=== PATIENT | female | born 1985 | race Caucasian/White ===

== ENCOUNTER 2016-08-07 17:47 | Observation (INO) ==
[2016-08-07 18:35] LABS: Bilirubin,Urine Negative (Negative); Blood,Urine Negative (Negative); Clarity,Urine Clear (Clear); Color,Urine Yellow (Yellow); Glucose,Urine (UA) Normal (Normal); Ketones,Urine Negative (Negative); Leukocyte Esterase,Urine Small (Negative); Nitrite,Urine Negative (Negative); PH,Urine 5.5 pH Units (5.0-8.0); Protein,Urine Negative (Neg-Trace); Specific Gravity,Urine 1.025 (1.010-1.025); Urobilinogen,Urine Normal (Normal)
[2016-08-07 18:37] LABS: Bacteria,Urine Moderate per hpf (None-Few); Hyaline Casts,Urine None Seen per lpf (None-Few); Squamous Epithelial Cell,Urine Many per lpf (None-Few)
--- NOTE | 2016-08-07 18:50 | OB/GYN Progress Note ---
Date of Encounter: 08/07/16 Time of Encounter: 18:40 - Assessment and Plan (1) and not yet delivered in second trimester Current Visit: Yes Status: Acute (2) 25 weeks gestation of Current Visit: Yes Status: Acute (3) Pain of round ligament affecting , antepartum Current Visit: Yes Status: Acute Labor precautions given has been instructed to get off her feet minimize activity can use Tylenol and heating pad (4) Decreased movement affecting management of in second trimester Current Visit: Yes Status: Acute kick counts given Subjective - Subjective Interval history: Patient is a 31-year-old 4 para 2 at 25-2/7 weeks who presented to labor and delivery complaining of decreased movement and sharp stabbing pain when she moves in certain way. Patient states no longer having the pain is just lying flat is just when she goes from sitting to standing she has a sharp pain in the lower abdomen that goes across the midline. Patient states she is unable to be removed in 1-2 times in the last 4 days. She does have an anterior placenta. Did inform it is not uncommon not to have a lot of movement at this gestational age especially with the anterior placenta. Patient was concerned she came in just to be monitored. She is denying any dysuria urgency frequency no vaginal discharge itching or burning. Since being placed on the monitor she has been having good movement. Antepartum ROS: other (Decreased movement with sharp stabbing pain with movement) Objective - Vital Signs Vital Signs: Intake and Output 08/07/16 08/07/16 08/07/16 07:59 15:59 23:59 Other: Weight 132.7 kg Patient Weight 08/07/16 23:59 Weight 132.7 kg - Exam FHR: category 1 FHR comments: heart tones 140s reassuring no contractions seen Abdomen: Present: normal appearance, gravid Uterus: Present: normal, other (mild tenderness of the inguinal region suggestive of round ligament pain) - Labs Labs: Abnormal lab results Ur Leukocyte Esterase Small (Negative) H 08/07/16 18:22
[2016-08-07 19:14] LABS: Calcium Phosphate Crystals,Ur Present
== END 2016-08-07 19:09 | disposition home or self-care (01) ==
LOC: 1NENULAB
PROVIDERS: ADMIT Obstetrics & Gynecology; ATTEND Obstetrics & Gynecology

== ENCOUNTER 2016-10-12 22:12 | Observation (INO) ==
--- NOTE | 2016-10-12 23:19 | OB/GYN Progress Note ---
Date of Encounter: 10/12/16 Time of Encounter: 23:19 - Assessment and Plan (1) 35 weeks gestation of Status: Acute (2) NST (non-stress test) reactive Status: Acute Baseline 125 (3) Decreased movement affecting management of Status: Acute Patient reports kick counts 3 out of 10 for over 3 hours prior to arrival. However patient had reactive NST baseline of 125, increased activity reassuring benign physical exam. No abdominal pain, contractions, or fluid leakage. Pt does report recent vaginal infection with gardnerella treated with flagyl and last dose was today. Discharge is still present. May take some time to clear. Discussed with pt. No urinary sx. Vitals stable. Reassuring reactive NST with baseline of 125. During the course of her stay pt continued to experience movements. Discharge home. Return precautions given, patient and expressed understanding. Subjective - Subjective Principal diagnosis: decreased movement Interval history: Patient is a at 34 weeks and 4 days with a past medical history of Anxiety, Polycystic ovarian syndrome, MTHFR heterozygous mutation, gastroesophageal reflux disease (GERD), Gestational Diabetes, obesity who presents with decreased movement. Patient reports that during her daily kick counts around 9 PM this evening there were only 3 out of 10. Furthermore, patient reports that she had not really felt kicks throughout the day but that baby is generally more active in the evening after a large meal around dinnertime. Patient tried changing positions, increasing fluid intake without increase in kick counts. Patient called in for guidance and she was encouraged to be evaluated. On presentation to labor and delivery patient had reactive NST with a baseline of 125. Patient noted that she was feeling the baby much more after arrival. In addition, patient reports vaginal discharge that is yellowish green with a slight odor that has been persistent since onset 2 weeks ago. Pt reports that she is wearing a pad due to volume of discharge. US 10/10/16 Demonstrated nuchal cord. Pt has had significant anxiety and worry over this. Pt instructed to take movement counts daily. Recent infections: Gardnerella detected on 10/05/16 treated with Flagyl last dose was today. Patient denies: Abdominal pain, fluid leakage, dysuria, pyuria, hematuria, flank pain. Patient has had regular visits and is seen by Jesse Manuel DO. OB History: Total pregnancies 4. Total living children 2. Miscarriage(s) 1. # 1: 04/23/2010, vaginal delivery, EGA 38 weeks, female, 6-13#. # 2: 11/18/2013 Vaginal delivery Full term 10lbs 2oz [place] delivered. [place] [place] [employer] History: Sexual activity age of first intercourse 19, number of sex partners in life 1, currently sexually active. Last pap smear date 02/04/14. Last mammogram date n/a. Denies H/O Abnormal pap smear none. Denies H/O Sexually Transmitted Diseases (STDs) none. control none. Menarche:Age of onset of maternal menarche: 14. Menstruation: Last menstrual period 02/12/2016 Bone Density Testing No. Comment SBE-occ Colonoscopy-no . History of Ovarian Cyst Yes. Antepartum ROS: other (vaginal discharge), no loss of fluid, no vaginal bleeding , no movement normal, no contractions Objective - Vital Signs Vital Signs: Intake and Output 10/12/16 10/12/16 10/12/16 07:59 15:59 23:59 Other: Weight 127.7 kg Patient Weight 10/12/16 23:59 Weight 127.7 kg - Exam FHR: auscultation normal FHR comments: 125 baseline Auscultation: bilateral: normal Abdomen: Present: normal appearance, soft, gravid Uterus: Present: normal, firm
--- NOTE | 2016-10-12 23:36 | Discharge Summary ---
Date of Encounter: 10/12/16 Time of Encounter: 23:34 - Discharge Diagnosis (1) 35 weeks gestation of Priority: Primary Status: Acute (2) Decreased movement affecting management of in second trimester Priority: Primary Status: Acute Comments: P called and reported decrease in movement during kick counts 10/06. Pt in for evaluation. Reactive NST with baseline of 125. Pt states is feeling baby move more now that she is here. discussed counts and need to continue. Discharged in stable condition, discussed when to call provider and return to triage. (3) NST (non-stress test) reactive Priority: Secondary Status: Acute Comments: Baseline 125 - Discharge Medications Home Medications: Aspirin [Lo-Dose Aspirin EC] 1 tab PO DAILY 08/07/16 [History] Vit Calc,Iron,Folic [ Vitamins] 1 tab PO DAILY 08/07/16 [ History] Ranitidine HCl [Zantac 75] 75 mg PO DAILY 10/12/16 [History] Allergies/Adverse Reactions: Allergies No Known Allergies Allergy (Verified 08/07/16 18:16) Date of admission: 10/12/16 22:12 Discharging clinician: Michelle Bello Anticipated date of discharge: 10/12/16 - Patient Status Disposition: Home, Self-Care Condition: Good Functional capacity at discharge: independent ambulation Overall status at discharge: patient is back to baseline - Discharge Instructions Follow Up With: Bakari Manuel DO [Partnered Physician] - - Diet and Activity Activity: resume usual activities as tolerated Diet: regular diet 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
== END 2016-10-12 23:50 | disposition home or self-care (01) ==
LOC: 1NENULAB
PROVIDERS: ADMIT Obstetrics & Gynecology; ATTEND Obstetrics & Gynecology

== ENCOUNTER 2016-10-20 15:28 | Observation (INO) ==
--- NOTE | 2016-10-20 15:36 | OB/GYN Progress Note ---
Date of Encounter: 10/20/16 Time of Encounter: 15:31 - Assessment and Plan (1) 35 weeks gestation of Current Visit: No Status: Acute FHR monitoring/tocometer (2) Decreased movement affecting management of Current Visit: No Status: Acute FHR and tocometer; hydration Subjective - Subjective Principal diagnosis: decreased movement Interval history: 31 year , 35 5/7 weeks, follows with Dr. Manuel has been advised to count kicks due to possible nuchal cord found on US at 33 weeks. Patient states that yesterday she had decreased movement and called the OB office and was advised to drink sweat tea which resolved the problem. She states she may have also experienced a small loss of fluid because her panty liner was wet but is not sure if it was urine because she is most recently recovering from a UTI. Little states that since 1100 today, she has not felt movement but it experineicng RLQ sharp shooting pain. She denies fever, nausea, vomitting, or UTI symptoms. Denies any loss of fluid today. JAYSON: 11/18/16 Antepartum ROS: other (decreased movement, abdominal pain, possible loss of fluid) Objective - Exam FHR comments: 140-150s Auscultation: bilateral: normal Abdomen: Present: normal appearance, soft, gravid Uterus: Present: normal, firm
[2016-10-20 17:22] LABS: Basophils % 0.2 %; Eosinophils # 0.1 K/mcL (0.0-0.6); Eosinophils % 1.3 %; Hematocrit 39.7 % (35.3-44.9); Hemoglobin 13.1 g/dL (11.5-15.4); Immature Granulocytes % 0.3 % (0-4); Immature Platelets 12.4 % (1.1-6.1); Lymphocytes # 1.9 K/mcL (0.6-4.6); Lymphocytes % 21.6 %; Mean Corpuscular Volume 81.9 fL (83.0-100.0); Mean Platelet Volume 11.9 fL (9.4-12.4); Monocytes # 0.6 K/mcL (0.0-1.3); Monocytes % 6.7 %; Neutrophils # 6.2 K/mcL (1.6-8.9); Platelet Count 193 K/mcL (140-400); Red Blood Count 4.85 M/mcL (3.82-4.97); Red Cell Distribution Width 14.7 % (11.5-14.5); Segmented Neutrophils % 69.9 %
[2016-10-20 17:31] LABS: Protein/Creatinine Ratio,Urine 0.16 mg/mg (0-0.20)
[2016-10-20 17:46] LABS: Alanine Aminotransferase 34 Units/L (0-55); Aspartate Amino Transferase 18 Units/L (5-34); BUN/Creatinine Ratio 13 (6-26); Blood Urea Nitrogen 7 mg/dL (7-20); Uric Acid 3.1 mg/dL (2.6-6.0); eGFR For African Americans > 60 (> 60); eGFR For Non-African Americans > 60 (> 60)
[2016-10-20 17:59] LABS: Lactate Dehydrogenase 179 Units/L (159-327)
--- NOTE | 2016-10-20 18:09 | Discharge Summary ---
Date of Encounter: 10/20/16 Time of Encounter: 18:12 - Discharge Diagnosis (1) 35 weeks gestation of Priority: Primary Status: Acute (2) NST (non-stress test) reactive Priority: Secondary Status: Acute (3) Decreased movement affecting management of Priority: Primary Status: Acute - Discharge Medications Home Medications: Aspirin [Lo-Dose Aspirin EC] 1 tab PO DAILY 08/07/16 [History] Vit Calc,Iron,Folic [ Vitamins] 1 tab PO DAILY 08/07/16 [ History] Ranitidine HCl [Zantac 75] 75 mg PO DAILY 10/12/16 [History] Allergies/Adverse Reactions: Allergies No Known Allergies Allergy (Verified 08/07/16 18:16) Data Procedures and tests throughout hospitalization: Laboratory Tests 10/20/16 10/20/16 10/20/16 17:12 17:12 17:12 WBC 8.9 RBC 4.85 Hgb 13.1 Hct 39.7 MCV 81.9 L MCH 27.0 L MCHC 33.0 RDW 14.7 H Plt Count 193 MPV 11.9 Immature Gran % 0.3 Seg Neutrophils % 69.9 Lymphocytes % 21.6 Monocytes % 6.7 Eosinophils % 1.3 Basophils % 0.2 Neutrophils # 6.2 Lymphocytes # 1.9 Monocytes # 0.6 Eosinophils # 0.1 Basophils # 0.0 Immature Plt Fraction 12.4 H BUN 7 Creatinine 0.56 L Est GFR ( Amer) > 60 Est GFR (Non-Af Amer) > 60 BUN/Creatinine Ratio 13 Uric Acid 3.1 AST 18 ALT 34 Lactate Dehydrogenase 179 Urine Creatinine 115 Protein/Creatinin Ratio 0.16 Urine Total Protein 18 H Labs on day of discharge: Labs from last 24 hours 10/20/16 10/20/16 10/20/16 17:12 17:12 17:12 WBC 8.9 RBC 4.85 Hgb 13.1 Hct 39.7 MCV 81.9 L MCH 27.0 L MCHC 33.0 RDW 14.7 H Plt Count 193 MPV 11.9 Immature Gran % 0.3 Seg Neutrophils % 69.9 Lymphocytes % 21.6 Monocytes % 6.7 Eosinophils % 1.3 Basophils % 0.2 Neutrophils # 6.2 Lymphocytes # 1.9 Monocytes # 0.6 Eosinophils # 0.1 Basophils # 0.0 Immature Plt Fraction 12.4 H BUN 7 Creatinine 0.56 L Est GFR ( Amer) > 60 Est GFR (Non-Af Amer) > 60 BUN/Creatinine Ratio 13 Uric Acid 3.1 AST 18 ALT 34 Lactate Dehydrogenase 179 Urine Creatinine 115 Protein/Creatinin Ratio 0.16 Urine Total Protein 18 H Date of admission: 10/20/16 15:28 Primary care physician: Roslyn Soriano Discharging clinician: Magan Ac Anticipated date of discharge: 10/20/16 - Patient Status Disposition: Home, Self-Care Condition: Good Functional capacity at discharge: independent ambulation Overall status at discharge: patient is back to baseline - Discharge Instructions Follow Up With: Roslyn Guzman MD [Primary Care Provider] - 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 Attestation: Total time spent providing and/or coordinating discharge services: Exam - Constitutional General appearance IM: A&O X 3, pleasant, no acute distress, obese - Respiratory Respiratory exam: Present: CTAB - Cardiovascular Cardiovascular exam IM: Present: +S1, +S2 - GI/Abdominal GI/Abdominal exam IM: normal bowel sounds - Extremities Exam Extremities exam IM: Present: full ROM, normal capillary refill, normal inspection, pedal edema (Mild nonpitting bilateral lower extremities), radial pulses palpable and symetrical - Neurological Exam Neurological exam: CN II-XII intact, reflexes normal
== END 2016-10-20 18:16 | disposition home or self-care (01) ==
LOC: 1NENULAB
PROVIDERS: ADMIT Obstetrics & Gynecology; ATTEND Obstetrics & Gynecology

== ENCOUNTER 2016-10-25 18:37 | Observation (INO) ==
[2016-10-25 20:21] LABS: eGFR For African Americans > 60 (> 60); eGFR For Non-African Americans > 60 (> 60)
[2016-10-25 20:32] LABS: Protein/Creatinine Ratio,Urine 0.1 mg/mg (0-0.20)
[2016-10-25 21:06] LABS: Basophils % 0.3 %; Eosinophils # 0.1 K/mcL (0.0-0.6); Eosinophils % 1.2 %; Hematocrit 41.6 % (35.3-44.9); Hemoglobin 13.4 g/dL (11.5-15.4); Immature Granulocytes % 0.4 % (0-4); Lymphocytes # 1.6 K/mcL (0.6-4.6); Lymphocytes % 20.7 %; Mean Corpuscular HGB Conc 32.2 g/dL (31.6-35.5); Mean Corpuscular Hemoglobin 26.5 pg (28.0-33.3); Mean Corpuscular Volume 82.4 fL (83.0-100.0); Mean Platelet Volume 11.6 fL (9.4-12.4); Monocytes # 0.6 K/mcL (0.0-1.3); Monocytes % 7.5 %; Neutrophils # 5.4 K/mcL (1.6-8.9); Platelet Count 175 K/mcL (140-400); Red Blood Count 5.05 M/mcL (3.82-4.97); Red Cell Distribution Width 14.9 % (11.5-14.5); Segmented Neutrophils % 69.9 %
[2016-10-25 21:16] LABS: Alanine Aminotransferase 27 Units/L (0-55); Aspartate Amino Transferase 19 Units/L (5-34); Blood Urea Nitrogen 10 mg/dL (7-20); Lactate Dehydrogenase 216 Units/L (159-327); Uric Acid 4.4 mg/dL (2.6-6.0)
--- NOTE | 2016-10-25 21:38 | Discharge Summary ---
Date of Encounter: 10/25/16 Time of Encounter: 21:00 - Discharge Diagnosis (1) 36 weeks gestation of Priority: Primary Status: Acute Comments: Patient 36 weeks gestation presents to triage with headache for last 2 days and elevated blood pressures sent to triage for evaluation from office. Patient had taken blood pressure at home had elevated blood pressures dizziness and occasional chest pressure. On evaluation patient denied those symptoms Patient reports good movement and denies leaking of fluid or vaginal bleeding (2) Elevated blood pressure affecting in third trimester, antepartum Priority: Primary Status: Acute Comments: Elevated blood pressures resolved while triage last blood pressure 143/78. PIH labs drawn all labs negative. +2 DTRs patient denies all other PIH symptoms Plan to discharge patient to home discussed PIH symptoms and when to return to triage also discussed labor warning signs and symptoms and when to call provider (3) Headache in , antepartum Priority: Secondary Status: Acute Comments: Patient states headache is improved since presenting to triage. For patient we are separate pain management patient declined state she has had similar medication the past (Excedrin) and she does not like the way it makes her feel. Patient states she does not drink a lot of caffeine and has a low tolerance. Advised patient to she could take Tylenol and Benadryl if needed for sleep. Patient also encouraged to increase hydration and fluid due to concentrated urine on evaluation Qualifiers: Trimester: third trimester Qualified Code(s): O26.893 - Other specified related conditions, third trimester; R51 - Headache (4) NST (non-stress test) reactive Priority: Secondary Status: Acute Comments: Baseline 120s - Discharge Medications Home Medications: Aspirin [Lo-Dose Aspirin EC] 1 tab PO DAILY 08/07/16 [History] Vit Calc,Iron,Folic [ Vitamins] 1 tab PO DAILY 08/07/16 [ History] Ranitidine HCl [Zantac 75] 75 mg PO DAILY 10/12/16 [History] Allergies/Adverse Reactions: Allergies No Known Allergies Allergy (Verified 08/07/16 18:16) Data Procedures and tests throughout hospitalization: Laboratory Tests 10/25/16 10/25/16 10/25/16 20:02 20:02 20:02 WBC 7.8 RBC 5.05 H Hgb 13.4 Hct 41.6 MCV 82.4 L MCH 26.5 L MCHC 32.2 RDW 14.9 H Plt Count 175 MPV 11.6 Immature Gran % 0.4 Seg Neutrophils % 69.9 Lymphocytes % 20.7 Monocytes % 7.5 Eosinophils % 1.2 Basophils % 0.3 Neutrophils # 5.4 Lymphocytes # 1.6 Monocytes # 0.6 Eosinophils # 0.1 Basophils # 0.0 BUN 10 Creatinine 0.59 Est GFR ( Amer) > 60 Est GFR (Non-Af Amer) > 60 Uric Acid 4.4 AST 19 ALT 27 Lactate Dehydrogenase 216 Urine Creatinine Protein/Creatinin Ratio Urine Total Protein 10/25/16 20:10 WBC RBC Hgb Hct MCV MCH MCHC RDW Plt Count MPV Immature Gran % Seg Neutrophils % Lymphocytes % Monocytes % Eosinophils % Basophils % Neutrophils # Lymphocytes # Monocytes # Eosinophils # Basophils # BUN Creatinine Est GFR ( Amer) Est GFR (Non-Af Amer) Uric Acid AST ALT Lactate Dehydrogenase Urine Creatinine 205 Protein/Creatinin Ratio 0.10 Urine Total Protein 21 H Labs on day of discharge: Labs from last 24 hours 10/25/16 10/25/16 10/25/16 20:10 20:02 20:02 WBC RBC Hgb Hct MCV MCH MCHC RDW Plt Count MPV Immature Gran % Seg Neutrophils % Lymphocytes % Monocytes % Eosinophils % Basophils % Neutrophils # Lymphocytes # Monocytes # Eosinophils # Basophils # BUN 10 Creatinine 0.59 Est GFR ( Amer) > 60 Est GFR (Non-Af Amer) > 60 Uric Acid 4.4 AST 19 ALT 27 Lactate Dehydrogenase 216 Urine Creatinine 205 Protein/Creatinin Ratio 0.10 Urine Total Protein 21 H 10/25/16 20:02 WBC 7.8 RBC 5.05 H Hgb 13.4 Hct 41.6 MCV 82.4 L MCH 26.5 L MCHC 32.2 RDW 14.9 H Plt Count 175 MPV 11.6 Immature Gran % 0.4 Seg Neutrophils % 69.9 Lymphocytes % 20.7 Monocytes % 7.5 Eosinophils % 1.2 Basophils % 0.3 Neutrophils # 5.4 Lymphocytes # 1.6 Monocytes # 0.6 Eosinophils # 0.1 Basophils # 0.0 BUN Creatinine Est GFR ( Amer) Est GFR (Non-Af Amer) Uric Acid AST ALT Lactate Dehydrogenase Urine Creatinine Protein/Creatinin Ratio Urine Total Protein Date of admission: 10/25/16 18:37 Discharging clinician: Michelle Bello Anticipated date of discharge: 10/25/16 - Patient Status Disposition: Home, Self-Care Condition: Good - Discharge Instructions 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 Absent: calf tenderness, joint swelling - Neurological Exam Neurological exam: CN II-XII intact, oriented X3, reflexes normal, no focal deficits, strengths equal and symetr throughout - VTE Reasons for not Prescribing Prophylaxis: Treatment not Indicated - Low risk for VTE
== END 2016-10-25 21:45 | disposition home or self-care (01) ==
LOC: 1NENULAB
PROVIDERS: ADMIT Obstetrics & Gynecology; ATTEND Obstetrics & Gynecology

== ENCOUNTER 2016-11-01 12:31 | Observation (INO) ==
--- NOTE | 2016-11-01 12:59 | OB/GYN History & Physical ---
Date of Encounter: 11/01/16 Time of Encounter: 14:23 Assessment and Plan (1) Decreased movement during in third trimester, antepartum Current visit: Yes Status: Acute - vaginal delivery x2 37w 0d Patient reported decrease in movement per failed kick count x 2 today. She does feel movement now. External TOCO External FHR NST Gave orange push pop/cold fluids. NST reactive. Qualifiers: Fetus number: single or unspecified fetus Qualified Code(s): O36.8130 - Decreased movements, third trimester, not applicable or unspecified (2) with 37 or more completed weeks gestation Current visit: Yes Status: Acute as above (3) and not yet delivered in third trimester Current visit: Yes Status: Acute as above. (4) Chronic hypertension Current visit: Yes Status: Acute Continue current outpatient management. Pt denies s/sx preeclampsia today. BP normal in triage. (5) Obesity Current visit: Yes Status: Acute Continue current outpatient management. Qualifiers: Obesity type: due to excess calories Obesity severity: non-morbid Qualified Code(s): E66.09 - Other obesity due to excess calories (6) NST (non-stress test) reactive Current visit: No Status: Acute FHT 120 BPM History of Present Illness Chief complaint: decreased movement HPI: Ms. Delgado is a 31 year old female presents from home with concerns regarding decreased movement. Patient is concerned regarding previously noted nuchal cord. On patient's last visit to L&D, she was instructed to perform kick counts 3x daily. She has done two today and did not have any movement (6 kicks/1hr...she did drink something cold and lay still while counting as instructed). She is experiencing vaginal pressure and BL low back pressure. No vaginal discharge; no blood or fluid discharge. She notes mild tingling in her BL LE but is able to ambulate without difficulty. She is not sure if she is having any contractions stating, "I don't know what a contraction feels like. I had back labor with my last 2 deliveries." 37w 0d OB: Dr. Manuel complications: Possible nuchal cord found at 33w. Obesity, Chronic HTN. Hx GDM. Hx macrosomia - vaginally delivered. Patient's sister had MTHFR mutation. Blood type: A+, Ab (-) GBS (-) HbSAg (-) @ 05/13/16 Rubella (+) VZV (+) C. Trach (-) N. Gonorr (-) HIV (-) CF (-) While in triage she did start to feel some movement. She continues to report intermittent lower back discomfort and pelvic pressure. No other complaints. Past Med Surg Social Fam HX - Past Medical History Source: patient Medical history: no medical history Psychiatric history: no psych history - Past Surgical History Surgical History: non-contributory - Social History Smoking Status: Never smoker Smokeless Tobacco Status: No Alcohol use: none Drug use: none - Family History Mother Adopted: No Living Status: Still Living Hx Family Cardiac Disorders: Yes (HYPERTENSION) Obstetrical History - Pregnancies : 4 Para: 2 Term: 2 : 0 Ab's: 0 Livin Medications and Allergies Aspirin [Lo-Dose Aspirin EC] 1 tab PO DAILY 08/07/16 [History] Vit Calc,Iron,Folic [ Vitamins] 1 tab PO DAILY 08/07/16 [ History] Ranitidine HCl [Zantac 75] 75 mg PO DAILY 10/12/16 [History] Allergies No Known Allergies Allergy (Verified 08/07/16 18:16) Review of System OB All systems PM: reviewed and no additional remarkable complaints except as stated - Constitutional Constitutional ROS IM: no fatigue, no fever(s), no headache(s) - Nose, mouth, and throat Nose, mouth and throat: no dizziness, no headache(s) - Cardiovascular Cardiovascular: pedal edema, no chest pain, no lightheadedness - Respiratory Respiratory: no cough, no dyspnea, no hemoptysis, no wheezing, no chest congestion - Gastrointestinal Gastrointestinal: no abdominal pain, no change in stool character, no constipation, no diarrhea, no dyspepsia, no heartburn, no nausea, no vomiting - Genitourinary Genitourinary: no flank pain, no vaginal discharge - Neurological Nerological: numbness, no headache(s), no lack of coordination, no paresthesias , no vertigo Exam - Constitutional Constitutional: well developed, well nourished, no acute distress, obese - HEENT HEENT: Mucus Membranes Moist - Neck Neck exam: normal inspection - Lungs Respiratory exam: CTAB - Cardiovascular Cardiovascular exam: RRR, +S1, +S2 - Abdomen Abdomen: Present: bowel sounds normal, gravid, non tender. Absent: guarding noted - Extremities Extremities exam: normal capillary refill, normal inspection, pedal edema (1+ equal bilaterally), radial pulses palpable and symetrical - Vagina Vagina: Present: normal moisture - Cervix Dilation: 3 Effacement: 50 (bolottable) Station: -3 - Anus/Rectum Anus/Rectum: Present: normal perianal skin Results All other labs normal.
--- NOTE | 2016-11-01 14:35 | OB/GYN Progress Note ---
Date of Encounter: 11/01/16 Time of Encounter: 14:33 - Assessment and Plan (1) Decreased movement during in third trimester, antepartum Current Visit: Yes Status: Acute - vaginal delivery x2 37w 0d Patient reported decrease in movement per failed kick count x 2 today. She does feel movement now. External TOCO External FHR NST Gave orange push pop/cold fluids. NST reactive. Qualifiers: Fetus number: single or unspecified fetus Qualified Code(s): O36.8130 - Decreased movements, third trimester, not applicable or unspecified (2) with 37 or more completed weeks gestation Current Visit: Yes Status: Acute as above (3) and not yet delivered in third trimester Current Visit: Yes Status: Acute as above. (4) Chronic hypertension Current Visit: Yes Status: Acute Continue current outpatient management. Pt denies s/sx preeclampsia today. BP normal in triage. (5) Obesity Current Visit: Yes Status: Acute Continue current outpatient management. Qualifiers: Obesity type: due to excess calories Obesity severity: non-morbid Qualified Code(s): E66.09 - Other obesity due to excess calories (6) NST (non-stress test) reactive Current Visit: No Status: Acute FHT 120 BPM Subjective - Subjective Interval history: Pt presenting at 37 weeks with c/o decreased movement, lower back pain, and pelvic pressure. No bleeding or LOF. She has chronic HTN but denies s/sx preeclampsia. Antepartum ROS: no loss of fluid, no vaginal bleeding, no contractions Objective - Vital Signs Vital Signs: Intake and Output 10/31/16 11/01/16 11/01/16 23:59 07:59 15:59 Other: Weight 126.099 kg Patient Weight 11/01/16 23:59 Weight 126.099 kg - Exam FHR: category 1 FHR comments: NST reactive Auscultation: bilateral: normal Abdomen: Present: soft, gravid. Absent: tenderness Uterus: Absent: tenderness Cervical dilation: 3 Cervix effacement: 50 station: bolottable
== END 2016-11-01 14:41 | disposition home or self-care (01) ==
LOC: 1NENULAB
PROVIDERS: ADMIT Obstetrics & Gynecology; ATTEND Obstetrics & Gynecology

== ENCOUNTER 2016-11-16 04:45 | Inpatient (IN) ==
[2016-11-16] MEDS ORDERED: Naloxone 0.4 MG/ML INJ IVP PRN (05:22)
[2016-11-16] MEDS ORDERED: Famotidine 20 MG/2 ML VIAL IVP PRN (05:22)
[2016-11-16] MEDS ORDERED: Metoclopramide 10 MG/2 ML VIAL IVP PRN (05:22)
[2016-11-16] MEDS ORDERED: *HR* Nalbuphine 20 MG/ML AMPUL IVP PRN (05:28)
[2016-11-16] MEDS ORDERED: Ringers Solution, Lactated 1,000 ML IVC SCH (05:30)
[2016-11-16] MEDS ORDERED: Lidocaine -MPF 2% 5 ML VIAL INFILT ONE (05:35)
--- NOTE | 2016-11-16 05:46 | OB/GYN History & Physical ---
Date of Encounter: 11/16/16 Time of Encounter: 05:40 Assessment and Plan (1) 39 weeks gestation of Current visit: Yes Status: Acute 39 weeks 5 days admit to labor and delivery for induction of labor BMI is 43 continue on FHM and toco elevated BP 150/91, PIH orders initiated pain medications or epidural upon request anticipate (2) induced hypertension, antepartum Current visit: Yes Status: Acute no signs/symptoms initial BP elevated 150/90 PIH orders initiated (3) Obesity Current visit: Yes Status: Acute BMI is 43 Qualifiers: Obesity type: unspecified obesity type Obesity severity: unspecified obesity severity Qualified Code(s): E66.9 - Obesity, unspecified History of Present Illness Chief complaint: induction of labor HPI: Ms. Delgado is a 31 year old female 39 weeks 5 days presents for induction of labor. Her estimated due date is 11/18/2016. Her OB is Dr. Manuel, scheduled induction today at 0500. Last cervix check 4cm/50% on 11/14/2016Her blood pressure is elevated here 150/90. BP has been monitored throughout , normotensive. No complaints at this time. Denies any headache, fever , abdominal tenderness. Endorses good movement. History of gestational diabetes on prior and chronic hypertension. History of 2 spontaneous vaginal deliveries without complications. GBS negative. HBV nonreactive, Rubella immune, other serologies reviewed and otherwise negative. Her blood type is A positive. Last meal or oral intake 1830 last night. History of wisdom teeth extraction, D&C and bilateral urethral implants. No complications with surgeries or anesthesia in the past. No known drug allergies. She takes vitamins, baby aspirin for MTHFR (no history of blood clots), and Xanax. Past Med Surg Social Fam HX - Past Medical History Medical history: no medical history Psychiatric history: no psych history - Past Surgical History Surgical History: non-contributory - Social History Smoking Status: Never smoker Smokeless Tobacco Status: No Alcohol use: none Drug use: none - Family History Mother Adopted: No Age: 63 Living Status: Still Living Hx Family Cardiac Disorders: Yes (htn) Hx Family Respiratory Disorders: No Hx Family Cancer: No Hx Family GI Disorders: No Hx Family Genitourinary Disorders: No Hx Family Endocrine Disorder: No Hx Family Musculoskeletal Disorders: No Hx Family Neuromuscular Disorders: No Hx Family Neurologic Disorders: No Hx Family HEENT Disorders: No Hx Family Autoimmune Disorders: No Hx Family Reproductive Disorders: No Hx Family Psychosocial Disorders: No Hx Family Medical Disorders: No Obstetrical History - Pregnancies : 4 Para: 2 Term: 2 : 0 Ab's: 1 Livin Medications and Allergies Aspirin [Lo-Dose Aspirin EC] 1 tab PO DAILY 08/07/16 [History] Vit Calc,Iron,Folic [ Vitamins] 1 tab PO DAILY 08/07/16 [ History] Ranitidine HCl [Zantac 75] 75 mg PO DAILY 10/12/16 [History] Allergies No Known Allergies Allergy (Verified 08/07/16 18:16) Review of System OB All systems PM: reviewed and no additional remarkable complaints except as stated Exam - Vital Signs Vital signs: Initial Vital Signs Pulse Resp BP 91 16 150/91 11/16/16 05:10 11/16/16 05:10 11/16/16 05:10 - Constitutional Constitutional: well developed, well nourished, no acute distress, obese - HEENT HEENT: Normocephaly, Mucus Membranes Moist - Neck Neck exam: full ROM, normal inspection - Lungs Respiratory exam: CTAB - Cardiovascular Cardiovascular exam: RRR, +S1, +S2 - Abdomen Abdomen: Present: bowel sounds normal, gravid, non tender - Extremities Extremities exam: full ROM, normal capillary refill, pedal edema (mild), warm Deep Tendon Reflex Grade: 2+ Normal - Uterus Uterus exam: Present: normal size Results All other labs normal. - VTE Reasons for not Prescribing Prophylaxis: Treatment not Indicated - Low risk for VTE
[2016-11-16 06:05] LABS: Basophils % 0.1 %; Eosinophils # 0.1 K/mcL (0.0-0.6); Eosinophils % 1.4 %; Hematocrit 40.3 % (35.3-44.9); Hemoglobin 13.3 g/dL (11.5-15.4); Immature Granulocytes % 0.4 % (0-4); Lymphocytes # 1.9 K/mcL (0.6-4.6); Lymphocytes % 22.5 %; Mean Corpuscular Volume 81.9 fL (83.0-100.0); Mean Platelet Volume 12.1 fL (9.4-12.4); Monocytes # 0.5 K/mcL (0.0-1.3); Monocytes % 6.1 %; Platelet Count 173 K/mcL (140-400); Red Blood Count 4.92 M/mcL (3.82-4.97); Red Cell Distribution Width 15.4 % (11.5-14.5); Segmented Neutrophils % 69.5 %
[2016-11-16] MEDS: Oxytocin 20 units/ LR 1000 mL 20 UNIT/1,000 ML BAG IVC SCH ×2 (06:09→13:17)
[2016-11-16 06:19] LABS: Alanine Aminotransferase 18 Units/L (0-55); Aspartate Amino Transferase 15 Units/L (5-34); BUN/Creatinine Ratio 14 (6-26); Blood Urea Nitrogen 8 mg/dL (7-20); Lactate Dehydrogenase 162 Units/L (159-327); Uric Acid 3.1 mg/dL (2.6-6.0); eGFR For African Americans > 60 (> 60); eGFR For Non-African Americans > 60 (> 60)
[2016-11-16] MEDS ORDERED: Ringers Solution, Lactated 500 ML IVC ONE (08:27)
[2016-11-16] MEDS ORDERED: EPHEDrine 50 MG/ML VIAL IVP PRN (08:27)
[2016-11-16] MEDS ORDERED: Epidural Premix (fent/bupiv) 110 ML EP SCH (08:30)
--- NOTE | 2016-11-16 09:06 | OB Labor Progress Note ---
Date of Encounter: 11/16/16 Time of Encounter: 09:00 Labor Progress Note - Subjective Subjective: Pt reports mild-moderate pain with contractions. - Cervix Cervix: 5/80/-1 - Heart Tones Heart Tones: Category I - Abeytas Abeytas: 3-4 minutes - Interventions Interventions: AROM for large amount clear fluid. FSE applied due to inability to trace FHT via EFM. - Plan Plan: Epidural when requested. Anticipate .
[2016-11-16] MEDS ORDERED: Epidural Premix (fent/bupiv) 110 ML EP ONE (09:15)
--- NOTE | 2016-11-16 10:05 | Anesthesia Evaluation PreOp ---
Date of Encounter: 11/16/16 Time of Encounter: 10:03 - Past History Planned Operation: SAMY Cardiac History: Denies any Significant Hx Pulmonary History: Denies Any Significant HX [employer] History: Denies Any Significant HX Other Medical History: Denies Any Significant HX Anesthesia History: No Prior Anesthetic Complications, Past Anesthesia : Yes Alcohol Use: none Drug use: none Medications and Allergies Aspirin [Lo-Dose Aspirin EC] 1 tab PO DAILY 08/07/16 [History] Vit Calc,Iron,Folic [ Vitamins] 1 tab PO DAILY 08/07/16 [ History] Ranitidine HCl [Zantac 75] 75 mg PO DAILY 10/12/16 [History] Allergies No Known Allergies Allergy (Verified 08/07/16 18:16) - Meds/Allergy Pre-op Review Medications Reviewed: Yes Allergies Reviewed: Yes Beta Blockers on Current Med List: No Anesthesia Results - Labs 11/16/16 05:57 11/16/16 05:57 Anesthesia Exam Height: 5'8" Weight: 279# NPO (# of Hours): 8 Pain Scale: 9 Pain Scale Used: Numeric (1 - 10) - HEENT Pupil (Motor): Pupils equal Mallampati: III Teeth: Normal Oral Opening: Greater than 3 - [employer] LOC: Oriented [employer] Motor: Normal RUE, Normal LUE, Normal RLE, Normal LLE, Normal Face [employer] Sensory: Normal: RUE, LUE, RLE, LLE, Face - Cardiac Rhythm: Regular Murmur: None JVD: No Carotid Bruit: No - Pulmonary Breath Sounds: bilateral Clear Respiratory Effort: Symmetrical Anesthesia Assess/Plan ASA Score: 3 Modified Huma Scale for Level of Consciousness: Cooperative, oriented, and tranquil Anesthetic Plan: General (plan b), Regional (plan a) Autologous Blood: Yes Monitoring Plan: Standard Monitors
--- NOTE | 2016-11-16 10:08 | Anesthesia Procedures ---
Date of Encounter: 11/16/16 Time of Encounter: 10:05 Procedures: Anesthesia - Epidural/Spinal Patient ID/Chart reviewed: Yes Patient examined: Yes OB Eval: Gestational age: 39.5 OB Eval: : 4 OB Eval: Hx Para: 2 OB Eval: Dilated at (cm): 5 OB Eval: Contractions: Non-stressed pattern Consent Obtained: Yes Supplemental Oxygen: None/Room Air Site Prep: Aseptic Technique, Sterile prep and drape, Povidone-Iodine 1% Patient position: upright Local Anesthetic: Lidocaine 1% Amount of Local Anesthetic used: 3 Touhy Needle Gauge: 18 Touhy Needle Depth (cm): 9 Catheter Depth at Skin (cm): 15 Test Dose (1.5% Lido + Epi): Volume given (mls): 5 Test Dose Result: Negative Loading Dose: Other: 10mls of epidural pharm bag premix solution Loading Dose Administered: Thru Catheter Infusion Med: 0.125% Bupivacaine w/ 2 mcg/ml Fentanyl Infusion Rate (mls/hr): 16 ([id number]) Catheter Secured in Place: Tegaderm, Tape Interspace Used: L4-L5 Loss of Resistance (THOMAS): Yes Blood: No CSF: No Paresthesia: No Procedure: DIFFICULT EPIDURAL PLACEMENT. pt tolerated the procedure well. no complications. vss. fhr stable.
--- NOTE | 2016-11-16 11:43 | OB/GYN Procedure Note ---
Delivery - Delivery Date: 11/16/16 Provider: Bakari Manuel Intrapartum events: none Delivery induction: oxytocin Delivery augmentation: rupture of membranes Delivery monitor: external FHT, external uterine, internal FHT Anesthesia: epidural Estimated Blood Loss: 300 - Infant (s) A Infant Delivery Date: 11/16/16 Delivery Time: 11:16 Presentation: vertex Position: NATHALIA Route of delivery: Gender: Female Viability: Viable Pounds: 9 Ounces: 4 Weight Gram: 4205 kg at 1 minute: 8 at 5 mins: 9 Shoulder Dystocia: not encountered Placenta: spontaneous Cord: nuchal cord, 3 umbilical vessels, nuchal cut - Repair Episiotomy: none Laceration Description: Perineal - 2nd Degree - Complications Delivery complications: none - Disposition Mom disposition: stable in LDR [place] disposition: stable in LDR - Comments Comments: Patient progressed to complete dilatation and had a spontaneous vaginal delivery of viable female . scores were 8 and 9 at 1 and 5 minutes respectively, in the weighed 9 lbs. 4 oz. A tight nuchal cord 1 was present and requiring transection on the perineum. The placenta delivered spontaneously and appeared to be intact. A second-degree perineal laceration was repaired in usual fashion with 3-0 Vicryl suture. All sponge needle and sponge counts reported as correct. Estimated blood loss was 300 mL. No shoulder dystocia was encountered. Rectal sphincter muscle was intact.
[2016-11-16] MEDS ORDERED: Acetaminophen 325 MG TABLET PO PRN (13:49)
[2016-11-16] MEDS ORDERED: Oxytocin 20 units/ LR 1000 mL 20 UNIT/1,000 ML BAG IVC SCH (13:49)
[2016-11-16] MEDS: Ibuprofen 600 MG TABLET PO PRN ×2 (16:08→22:18)
[2016-11-17] MEDS: Ibuprofen 600 MG TABLET PO PRN (08:04)
[2016-11-17] MEDS ORDERED: Prenatal Vit/FA 1 EACH TABLET PO SCH (09:00)
--- NOTE | 2016-11-17 10:33 | Discharge Summary ---
Date of Encounter: 11/17/16 Time of Encounter: 10:31 - Discharge Diagnosis (1) Chronic hypertension Priority: Secondary Status: Acute (2) Vaginal delivery Priority: Primary Status: Acute Comments: Pt states feels well. pain well managed on po pain medication. voiding and tolerating regular diet. Desires discharge - Discharge Medications Prescriptions: Ibuprofen [Motrin] 600 mg PO Q6HR PRN #60 tablet PRN Reason: Cramping Docusate [Colace] 100 mg PO BID #60 capsule Home Medications: Vit Calc,Iron,Folic [ Vitamins] 1 tab PO DAILY 08/07/16 [ History] Ranitidine HCl [Zantac 75] 75 mg PO DAILY 10/12/16 [History] Acetaminophen [Tylenol] 650 mg PO Q6HR PRN #0 tablet 11/17/16 [Rx] Docusate [Colace] 100 mg PO BID #60 capsule 11/17/16 [Rx] Ibuprofen [Motrin] 600 mg PO Q6HR PRN #60 tablet 11/17/16 [Rx] Allergies/Adverse Reactions: Allergies No Known Allergies Allergy (Verified 08/07/16 18:16) Data Procedures and tests throughout hospitalization: Laboratory Tests 11/16/16 11/16/16 05:57 05:57 WBC 8.6 RBC 4.92 Hgb 13.3 Hct 40.3 MCV 81.9 L MCH 27.0 L MCHC 33.0 RDW 15.4 H Plt Count 173 MPV 12.1 Immature Gran % 0.4 Seg Neutrophils % 69.5 Lymphocytes % 22.5 Monocytes % 6.1 Eosinophils % 1.4 Basophils % 0.1 Neutrophils # 6.0 Lymphocytes # 1.9 Monocytes # 0.5 Eosinophils # 0.1 Basophils # 0.0 BUN 8 Creatinine 0.56 L Est GFR ( Amer) > 60 Est GFR (Non-Af Amer) > 60 BUN/Creatinine Ratio 14 Uric Acid 3.1 AST 15 ALT 18 Lactate Dehydrogenase 162 Date of admission: 11/16/16 04:45 Primary care physician: Roslyn Dai-[facility] Consults: 11/16/16 13:49 Consult to [employer]ayer [CONS] Routine Comment: Vaginal delivery, consult needed Discharging clinician: Michelle Bello Anticipated date of discharge: 11/17/16 - Patient Status Disposition: Home, Self-Care Condition: Good Functional capacity at discharge: independent ambulation Overall status at discharge: patient is back to baseline - Discharge Instructions Follow Up With: Roslyn Guzman MD [Primary Care Provider] - - Diet and Activity Activity: resume usual activities as tolerated Diet: advance to your usual diet, regular diet Hospital Course Reason for admission: IUP at term Delivery: Episiotomy: none Laceration: 2nd degree Other procedures: none complications: none Discharge diagnosis: IUP at term delivered baby: female Hospital course: Delivery - Delivery Date: 11/16/16 Provider: Bakari Manuel Intrapartum events: none Delivery induction: oxytocin Delivery augmentation: rupture of membranes Delivery monitor: external FHT, external uterine, internal FHT Anesthesia: epidural Estimated Blood Loss: 300 - (s) Infant A Delivery Date: 11/16/16 Infant Delivery Time: 11:16 Presentation: vertex Position: NATHALIA Route of delivery: Gender: Female Viability: Viable Pounds: 9 Ounces: 4 Weight Gram: 4205 kg at 1 minute: 8 at 5 mins: 9 Shoulder Dystocia: not encountered Placenta: spontaneous Cord: nuchal cord, 3 umbilical vessels, nuchal cut - Repair Episiotomy: none Laceration Description: Perineal - 2nd Degree - Complications Delivery complications: none - Disposition Mom disposition: stable in LDR [place] disposition: stable in LDR - Comments Comments: Patient progressed to complete dilatation and had a spontaneous vaginal delivery of viable female infant. scores were 8 and 9 at 1 and 5 minutes respectively, in the infant weighed 9 lbs. 4 oz. A tight nuchal cord 1 was present and requiring transection on the perineum. The placenta delivered spontaneously and appeared to be intact. A second-degree perineal laceration was repaired in usual fashion with 3-0 Vicryl suture. All sponge needle and sponge counts reported as correct. Estimated blood loss was 300 mL. No shoulder dystocia was encountered. Rectal sphincter muscle was intact. Time Attestation: Total time spent providing and/or coordinating discharge services: Time Spent: Less than 30 minutes Exam - Constitutional Vitals: Temp Pulse Resp BP Pulse Ox 97.9 F 82 16 123/82 96 11/17/16 07:30 11/17/16 07:30 11/17/16 07:30 11/17/16 07:30 11/17/16 03:05 General appearance IM: A&O X 3 - Respiratory Respiratory exam: Present: CTAB - Cardiovascular Cardiovascular exam IM: Present: RRR, +S1, +S2 - GI/Abdominal GI/Abdominal exam IM: normal bowel sounds, soft - Uterine Tone: Firm Uterus Position: Midline - Extremities Exam Extremities exam IM: Present: normal inspection - Neurological Exam Neurological exam: normal gait, oriented X3 - Psychiatric Additional comments: reports good mood
[2016-11-17 11:55] VITALS: BP 121/77
== END 2016-11-17 12:50 | disposition home or self-care (01) | DRG 775 ==
LOC: 1NENULAB 04:45 → 1NENUOBS 13:48

== ENCOUNTER 2021-11-26 15:36 | Observation (INO) ==
[2021-11-26] MEDS ORDERED: Isovue-370 500 ML BOTTLE IVP ONE (15:54)
[2021-11-26] MEDS ORDERED: 0.9 % Sodium Chloride 1,000 ML IVC ONE (15:54)
[2021-11-26 16:37] LABS: Bilirubin,Urine Negative (Negative); Blood,Urine Negative (Negative); Clarity,Urine Clear (Clear); Color,Urine Yellow (Yellow); Glucose,Urine (UA) Normal (Normal); Ketones,Urine 60 mg/dL (Negative); Leukocyte Esterase,Urine Negative (Negative); Nitrite,Urine Negative (Negative); PH,Urine 5.5 pH Units (5.0-8.0); Protein,Urine Trace mg/dL (Neg-Trace); Specific Gravity,Urine 1.029 (1.010-1.025); Urobilinogen,Urine Normal (Normal)
[2021-11-26 16:44] LABS: VBG HCO3 24 mEq/L (21-27); VBG PCO2 36 mmHg (41-51); VBG PH 7.42 pH Units (7.32-7.42); VBG PO2 62 mmHg (25-50)
[2021-11-26 16:47] LABS: Basophils % 0.3 %; Eosinophils # 0.1 K/mcL (0.0-0.6); Eosinophils % 0.3 %; Hematocrit 46.1 % (35.3-44.9); Hemoglobin 15.3 g/dL (11.5-15.4); Immature Granulocytes % 0.5 % (0-4); Lymphocytes # 1.7 K/mcL (0.6-4.6); Lymphocytes % 11.7 %; Mean Corpuscular HGB Conc 33.2 g/dL (31.6-35.5); Mean Corpuscular Hemoglobin 27.2 pg (28.0-33.3); Mean Platelet Volume 10.6 fL (9.4-12.4); Monocytes # 0.4 K/mcL (0.0-1.3); Neutrophils # 12.3 K/mcL (1.6-8.9); Platelet Count 368 K/mcL (140-400); Red Blood Count 5.62 M/mcL (3.82-4.97); Red Cell Distribution Width 13.6 % (11.5-14.5); Segmented Neutrophils % 84.2 %; White Blood Count 14.6 K/mcL (4.3-11.1)
[2021-11-26 16:56] LABS: INR 1.1; Prothrombin Time 11.8 Seconds (9.4-12.1)
[2021-11-26 17:07] LABS: Alanine Aminotransferase 15 Units/L (7-52); Albumin 4.2 g/dL (3.5-5.7); Albumin/Globulin Ratio 1.2 (1.1-2.2); Alkaline Phosphatase 46 Units/L (34-104); Aspartate Amino Transferase 14 Units/L (13-39); BUN/Creatinine Ratio 18 (6-26); Bilirubin,Total 0.6 mg/dL (0.3-1.0); Blood Urea Nitrogen 12 mg/dL (6-20); Calcium 9.4 mg/dL (8.6-10.3); Carbon Dioxide 23 mEq/L (23-29); Chloride 102 mEq/L (98-107); Globulin 3.5 g/dL (2.4-3.5); Glucose 128 mg/dL (70-105); Lipase 15 Units/L (11-82); Osmolality,Calculated 285 (280-300); Sodium 137 mEq/L (136-145); Total Protein 7.7 g/dL (6.4-8.9); Troponin I < 0.03 ng/mL (< 0.04); eGFR For African Americans > 60 (> 60); eGFR For Non-African Americans > 60 (> 60)
[2021-11-26 17:30] LABS: Adenovirus Not Detected (Not Detect); Bordetella Pertussis Not Detected (Not Detect); Chlamydophila pneumoniae Not Detected (Not Detect); Coronavirus 229E Not Detected (Not Detect); Coronavirus HKU1 Not Detected (Not Detect); Coronavirus NL63 Not Detected (Not Detect); Coronavirus OC43 Not Detected (Not Detect); Human Metapneumovirus Not Detected (Not Detect); Human Rhinovirus/Enterovirus Not Detected (Not Detect); Influenza A Subtype 2009 H1 Not Detected (Not Detect); Influenza B Not Detected (Not Detect); Mycoplasma pneumoniae Not Detected (Not Detect); Parainfluenza Virus 1 Not Detected (Not Detect); Parainfluenza Virus 2 Not Detected (Not Detect); Parainfluenza Virus 3 Not Detected (Not Detect); Parainfluenza Virus 4 Not Detected (Not Detect); Respiratory Syncytial Virus Not Detected (Not Detect); SARS-CoV-2 Not Detected (Not Detect)
[2021-11-26] MEDS ORDERED: *HR* LORazepam 2 MG/ML VIAL IVP ONE (18:57)
[2021-11-26] MEDS ORDERED: Naloxone 0.4 MG/ML INJ IVP PRN (19:46)
[2021-11-26] MEDS ORDERED: Perflutren Lipid Microsphere 1.3 ML in 0.9 % Sodium Chloride 8.7 ML IVP PRN (20:37)
[2021-11-26] MEDS ORDERED: Ondansetron 4 MG/2 ML VIAL IVP PRN (20:47)
[2021-11-26 21:18] LABS: Estimated Average Glucose 137 mg/dl; Hemoglobin A1C 6.4 %
[2021-11-26 21:33] LABS: Thyroid Stimulating Hormone 2.353 mcIU/mL (0.340-5.600)
[2021-11-26] MEDS ORDERED: HydrOXYzine 100 MG/2 ML VIAL IM ONE (23:35)
[2021-11-27] MEDS: *HR* Heparin 5,000 UNIT/ML VIAL SQ SCH ×3 (00:05→13:00)
[2021-11-27] MEDS: Ringers Solution, Lactated 1,000 ML IVC SCH ×2 (00:05→07:16)
[2021-11-27] MEDS ORDERED: Benzocaine/Menthol 56 GM AEROSOL SPRAY TP PRN (00:09)
[2021-11-27] MEDS ORDERED: Chloraseptic Spray 177 ML BOTTLE MM PRN (00:18)
[2021-11-27 02:18] LABS: Basophils % 0.2 %; Eosinophils # 0.2 K/mcL (0.0-0.6); Eosinophils % 0.8 %; Hematocrit 43.4 % (35.3-44.9); Hemoglobin 14.3 g/dL (11.5-15.4); Immature Granulocytes % 0.7 % (0-4); Lymphocytes # 1.1 K/mcL (0.6-4.6); Lymphocytes % 5.7 %; Mean Corpuscular HGB Conc 32.9 g/dL (31.6-35.5); Mean Platelet Volume 10.5 fL (9.4-12.4); Monocytes # 0.7 K/mcL (0.0-1.3); Monocytes % 3.7 %; Platelet Count 344 K/mcL (140-400); Red Blood Count 5.29 M/mcL (3.82-4.97); Red Cell Distribution Width 13.8 % (11.5-14.5); Segmented Neutrophils % 88.9 %; White Blood Count 19.1 K/mcL (4.3-11.1)
[2021-11-27 02:36] LABS: BUN/Creatinine Ratio 19 (6-26); Blood Urea Nitrogen 12 mg/dL (6-20); Calcium 8.8 mg/dL (8.6-10.3); Carbon Dioxide 21 mEq/L (23-29); Chloride 105 mEq/L (98-107); Glucose 189 mg/dL (70-105); Osmolality,Calculated 289 (280-300); Potassium 3.9 mEq/L (3.5-5.1); Sodium 137 mEq/L (136-145); eGFR For African Americans > 60 (> 60); eGFR For Non-African Americans > 60 (> 60)
[2021-11-27] MEDS ORDERED: Levothyroxine Sodium 100 MCG VIAL IVP SCH (09:00)
[2021-11-27] MEDS: lisinopriL 10 MG TABLET PO SCH (13:00)
[2021-11-27] MEDS: Metoprolol XL (24 HR) Succ 50 MG TAB.ER.24H PO SCH (13:00)
[2021-11-27] MEDS: MetroNIDAZOLE 500 MG/100 ML 500 MG/100 ML BAG IVPB SCH (15:34)
[2021-11-27] MEDS ORDERED: Piperacillin/Tazobactam 3.375 GM in 0.9 % Sodium Chloride Mini Bag 100 ML IVPB SCH (16:00)
[2021-11-28] MEDS: *HR* Heparin 5,000 UNIT/ML VIAL SQ SCH ×2 (00:08→04:53)
[2021-11-28] MEDS: MetroNIDAZOLE 500 MG/100 ML 500 MG/100 ML BAG IVPB SCH (00:08)
[2021-11-28] MEDS ORDERED: Acetaminophen 325 MG TABLET PO ONE (03:52)
[2021-11-28 05:27] LABS: Basophils % 0.3 %; Eosinophils # 0.2 K/mcL (0.0-0.6); Eosinophils % 1.5 %; Hematocrit 37.1 % (35.3-44.9); Immature Granulocytes % 0.5 % (0-4); Lymphocytes # 2.6 K/mcL (0.6-4.6); Lymphocytes % 22.4 %; Mean Corpuscular HGB Conc 31.5 g/dL (31.6-35.5); Mean Corpuscular Hemoglobin 26.7 pg (28.0-33.3); Mean Corpuscular Volume 84.7 fL (83.0-100.0); Mean Platelet Volume 10.9 fL (9.4-12.4); Monocytes # 0.7 K/mcL (0.0-1.3); Monocytes % 5.9 %; Neutrophils # 8.1 K/mcL (1.6-8.9); Platelet Count 261 K/mcL (140-400); Red Blood Count 4.38 M/mcL (3.82-4.97); Red Cell Distribution Width 13.9 % (11.5-14.5); Segmented Neutrophils % 69.4 %; White Blood Count 11.7 K/mcL (4.3-11.1)
[2021-11-28 05:30] LABS: Hemoglobin 11.7 g/dL (11.5-15.4)
[2021-11-28 05:43] LABS: Alanine Aminotransferase 13 Units/L (7-52); Albumin 3.5 g/dL (3.5-5.7); Albumin/Globulin Ratio 1.3 (1.1-2.2); Alkaline Phosphatase 34 Units/L (34-104); Aspartate Amino Transferase 13 Units/L (13-39); BUN/Creatinine Ratio 17 (6-26); Bilirubin,Total 0.7 mg/dL (0.3-1.0); Blood Urea Nitrogen 11 mg/dL (6-20); Calcium 8.3 mg/dL (8.6-10.3); Carbon Dioxide 25 mEq/L (23-29); Chloride 104 mEq/L (98-107); Globulin 2.8 g/dL (2.4-3.5); Glucose 124 mg/dL (70-105); Osmolality,Calculated 285 (280-300); Potassium 3.4 mEq/L (3.5-5.1); Sodium 137 mEq/L (136-145); Total Protein 6.3 g/dL (6.4-8.9); eGFR For African Americans > 60 (> 60); eGFR For Non-African Americans > 60 (> 60)
[2021-11-28 06:48] VITALS: BP 126/90; PULSE 68; TEMP 98.2; O2SAT 95
[2021-11-28] MEDS ORDERED: Milk and Molasses Enema 200 ML RC SCH (07:45)
[2021-11-28] MEDS ORDERED: metroNIDAZOLE 500 MG TABLET PO SCH (09:00)
[2021-11-28] MEDS: Metoprolol XL (24 HR) Succ 50 MG TAB.ER.24H PO SCH (09:09)
[2021-11-28] MEDS: lisinopriL 10 MG TABLET PO SCH (09:09)
== END 2021-11-28 11:45 | disposition home or self-care (01) ==
LOC: EMEROOARM 15:36 → 3BNU 15:36 → SUATTDRO 19:25 → 3BNU 19:53
PROVIDERS: ADMIT Internal Medicine; ATTEND Registered Nurse